=== PATIENT | female | born 1990 | race Caucasian/White ===

== ENCOUNTER → 2017-03-18 | Outpatient (CLI) | payer BC | LOC: CARD 12:36 | PROVIDERS: ATTEND Registered Nurse | DX: G43.711 Chronic migraine without aura, intractable, with status migrainosus (principal) | CPT/HCPCS: 95819 ==

== ENCOUNTER 2018-10-08 08:58 | Emergency (ER) | payer BC ==
[~2018-10-08] VITALS: Ht 152.4 cm; Wt 48.7 kg
--- NOTE | 2018-10-08 09:30 | NUR ---
FIRST CONTACT WITH PT. PT STATES "SEIZURE-LIKE SYMPTOMS" AT WORK ON SUNDAY. STOPPED TAKING PAXIL LAST SUNDAY. DIZZINESS X 2 DAYS. PT ALSO C/O INTERMITTNAT FACIAL NUMBNESS, CONFUSION AND HEAD THROBBING. NEURO INTACT. PT'S AOX4. RESPS EVEN AND UNLABORED. EDMD AT BEDSIDE TO EVALUATE AT THIS TIME.
--- NOTE | 2018-10-08 09:44 | NUR ---
pt in mri now.
--- NOTE | 2018-10-08 10:05 | NUR ---
PT BACK TO ROOM FROM MRI.
[2018-10-08 10:45] VITALS: BP 123/88
--- NOTE | 2018-10-08 10:46 | NUR ---
PT GIVEN DC INSTRUCTIONS. PT'S AOX4. RESPS EVEN AND UNLABORED. PT AMB TO DC WITH STEADY GAIT. NO ACUTE DISTRESS AT DC.
== END 2018-10-08 10:47 | disposition home or self-care (01) ==
LOC: ED 10:41
DX: R51 Headache (principal); R42 Dizziness and giddiness; T43.225A Adverse effect of selective serotonin reuptake inhibitors, initial encounter; R20.2 Paresthesia of skin; Y92.89 Other specified places as the place of occurrence of the external cause; G89.29 Other chronic pain; R73.9 Hyperglycemia, unspecified; F17.200 Nicotine dependence, unspecified, uncomplicated
CPT/HCPCS: 70551; 93005; 99284